=== PATIENT | female | born 1940 | race Caucasian/White ===

== ENCOUNTER 2022-02-11 15:12 | Inpatient (IN) ==
[2022-02-11 16:17] LABS: POC Calcium, Ionized 1.09 (1.16-1.32); POC Creatinine 0.7 (0.6-1.2); POC Potassium 3.8 (3.3-5.1)
[2022-02-11 16:42] LABS: Basophils # (Auto) 0 K/mcL (0.00-0.30); Basophils % (Auto) 0 % (0.0-2.0); Eosinophils # (Auto) 0.01 K/mcL (0.00-0.70); Eosinophils % (Auto) 0.3 % (0.0-7.0); Hematocrit 44.7 % (34.1-44.9); Hemoglobin 14.3 g/dL (11.2-15.7); Lymphocytes # (Auto) 0.57 K/mcL (1.50-4.80); Lymphocytes % (Auto) 17.4 % (15.5-49.0); Mean Cell Volume 98.2 fL (80.0-100.0); Mean Platelet Volume 10.5 fL (7.4-10.4); Monocytes # (Auto) 0.25 K/mcL (0.10-0.90); Monocytes % (Auto) 7.6 % (1.0-12.0); Neutrophils % (Auto) 74.7 % (38.0-78.0); Platelet Count 104 K/mcL (140-440); RBC 4.55 M/mcL (3.59-5.38); Red Cell Distribution Width 14.5 % (11.5-14.5); WBC 3.3 K/mcL (4.5-11.0)
[2022-02-11] MEDS ORDERED: DEXAMETHASONE 10 MG/ML VIAL IV ONE (17:54)
--- NOTE | 2022-02-11 17:54 | Emergency Department Note ---
HPI General Chief complaint: Cold/Flu Symptoms Stated complaint: wet cough Time Seen by Provider: 02/11/22 15:22 Source: patient Mode of arrival: wheelchair Limitations: no limitations History of Present Illness HPI Narrative: Narrative: Related Data Home Medications Medication Instructions Recorded Confirmed ascorbate calcium (vitamin C) 500 1,000 mg PO QDAY 12/29/18 02/07/22 mg tablet Previous Rx's Medication Instructions Recorded docusate sodium 100 mg capsule 100 mg PO BID #60 cap 06/15/19 (Colace) sumatriptan succinate 6 mg/0.5 mL See Rx Instructions .ROUTE 08/22/20 subcutaneous cartridge (refill) .COMPLEX #6 ml amitriptyline 10 mg tablet 20 mg PO QHS #60 tab 05/22/21 calcitonin (salmon) 200 See Rx Instructions .ROUTE 07/31/21 unit/actuation nasal spray .COMPLEX #11.1 milliliter losartan 25 mg tablet 25 mg PO QDAY #30 tab 08/14/21 raloxifene 60 mg tablet See Rx Instructions .ROUTE 09/25/21 .COMPLEX #90 tab levothyroxine 25 mcg tablet See Rx Instructions .ROUTE 10/09/21 .COMPLEX #30 tab tizanidine 2 mg tablet 2 mg PO BID PRN #60 tab 11/16/21 escitalopram oxalate 5 mg tablet 5 mg PO QDAY #30 tab 12/18/21 chlorhexidine gluconate 0.12 % See Rx Instructions .ROUTE 12/21/21 mouthwash .COMPLEX #473 ml methocarbamol 750 mg tablet 750 mg PO QHS #30 tab 01/02/22 pregabalin 75 mg capsule 75 mg PO QID #120 cap 01/25/22 oxycodone-acetaminophen 10 mg-325 1 tab PO Q6H PRN #120 tab 01/30/22 mg tablet alprazolam 0.5 mg tablet 0.5 mg PO QHS #30 tab 02/06/22 Allergies Allergy/AdvReac Type Severity Reaction Status Date / Time No Known Drug Allergies Allergy Verified 02/11/22 15:19 Review of Systems ROS ROS Narrative: Narrative: PFSH Narrative Patient History Narrative: Narrative: Medical/Surgical/Family History All Active Problems (Updated 02/11/22 @ 17:54 by Jason Dockery MD) COVID-19 (Acute) Degenerative disc disease (Acute) Neuropathy (Acute) Foot pain, right (Acute) Fall (on)(from) sidewalk curb, sequela (Acute) Osteoporosis (Acute) Irritable bowel syndrome (Chronic) Dysuria (Chronic) Rotoscoliosis (Chronic) Weakness (Chronic) History of surgery (Chronic) Adolescent idiopathic scoliosis, site unspecified (Chronic) Chronic pain (Chronic) Pain in left hip (Chronic) Low back pain (Chronic) Chronic, continuous use of opioids (Chronic) Encounter for medication management (Chronic) History of smoking 25-50 pack years (Chronic) Urinary urgency (Chronic) Urinary frequency (Chronic) Smoker (Chronic) Migraine (Chronic) Other nonspecific abnormal serum enzyme levels (Chronic) Fatigue (Chronic) SOB (shortness of breath) (Chronic) Hip pain (Chronic) COPD (chronic obstructive pulmonary disease) (Chronic) Back pain (Chronic) Fibromyalgia (Chronic) Lumbar radiculopathy (Chronic) Anxiety (Chronic) Muscle spasm (Chronic) Hypertension (Chronic) Shoulder pain (Chronic) Rupture of right biceps tendon (Chronic) Peripheral neuropathy (Chronic) GERD (gastroesophageal reflux disease) (Chronic) Insomnia (Chronic) Hyperlipidemia (Chronic) Anxiety with depression (Chronic) Adjustment disorder with mixed anxiety and depressed mood (Chronic) Impacted cerumen (Chronic) Scoliosis deformity of spine (Chronic) Esophageal stricture (Chronic) High risk medication use (Chronic) Overactive bladder (Chronic) Pain of right calf (Chronic) Hair loss (Chronic) Pain of left calf (Chronic) Foot pain (Chronic) Drug-induced constipation (Chronic) Pain in left shoulder (Chronic) Urinary incontinence (Chronic) Medical History (Updated 02/11/22 @ 17:54 by Jason Dockery MD) Adjustment disorder with mixed anxiety and depressed mood Adolescent idiopathic scoliosis, site unspecified Anxiety Anxiety with depression Back pain Cellulitis Chronic pain Chronic, continuous use of opioids for nonmalignant pain COPD (chronic obstructive pulmonary disease) Degenerative disc disease Drug-induced constipation Dysuria Esophageal stricture Fall (on)(from) sidewalk curb, sequela Fatigue Fibromyalgia Foot pain Foot pain, right GERD (gastroesophageal reflux disease) Hair loss High risk medication use Hip pain Hyperlipidemia Hypertension Impacted cerumen Insomnia Irritable bowel syndrome Low back pain Lumbar radiculopathy Migraine Muscle spasm Neuropathy Osteopenia Osteoporosis Other nonspecific abnormal serum enzyme levels Overactive bladder Pain in left hip Pain in left shoulder Pain of left calf Pain of right calf Peripheral neuropathy Rotoscoliosis Rupture of right biceps tendon Scoliosis deformity of spine Shoulder pain Smoker SOB (shortness of breath) Urinary frequency Urinary incontinence Urinary urgency Surgical History History of back surgery (~2011) Lumbar x 2; Back Stimulator (02/20/18) History of colonoscopy (~08/2008) History of esophagogastroduodenoscopy (EGD) (~04/2013) History of surgery RFTC Bilat L3-S1 w/sed 01/26/2001/05 MBB Bam. L3-S1 w/sed 01/05/202012/06 MBB #1 Bilat L3-S1 w/sed 12/16/1908/30 LESI #1 L5-S1 w/sed 09-18-11 S/P hip replacement (~2011) Family History Other Cancer Social History Smoking Status: Former smoker Alcohol Intake Frequency: does not drink Substance Use: does not use Exam Narrative Narrative: Narrative: General Limitations: no limitations General appearance: Present alert and in no apparent distress Head Head: Present atraumatic and normocephalic ENT ENT: Present normal oropharynx and other (tacky MM) Chest Chest: Present normal inspection and symmetric chest wall rise Respiratory Respiratory: Present normal lung sounds bilaterally; Absent respiratory distress Cardiovascular Cardiovascular: Present regular rate, normal rhythm, +S1, +S2 and other (2+ B/L DP and radial pulses); Absent systolic murmur or diastolic murmur Adbominal Abdominal: Present soft and normal bowel sounds; Absent distention or tenderness Extremities Extremities: Absent pedal edema Neurological Neurological: Present alert and oriented X3 Psychiatric Psychiatric: Present normal affect Skin Skin: Present warm (WNL) and dry Course Vital Signs Vital signs: Vital Signs Temperature 98.3 F 02/11/22 15:15 Pulse Rate 90 02/11/22 15:15 Respiratory Rate 16 02/11/22 15:15 Blood Pressure 133/58 02/11/22 15:15 Pulse Oximetry (%) 94 02/11/22 15:15 Temperature 98.3 F 02/11/22 15:15 Pulse Rate 77 02/11/22 19:01 Respiratory Rate 23 H 02/11/22 19:01 Blood Pressure 127/62 02/11/22 19:01 Pulse Oximetry (%) 97 02/11/22 19:01 MDM MDM Narrative Medical decision making narrative: 81yo F w/ h/o HTN, HLD, p/w cough. DDx - sepsis, PNA, COVID19, viral syndrome Pt presented clinically stable, in NAD. She was not septic, not toxic and blood cultures and lactate were not indicated. I did check a CXR which showed no infiltrate. Influenza swab was negative. COVID19 swab was positive. In the process of working her up she was noted to develop hypoxia w/ SaO2 coming down to the high 80s while resting. She was thus started on 2L NC which brought her sats up to the mid 90s. With COVID and hypoxia admission was clearly indicated and she was admitted to the hospitalist. Lab Data Result diagrams: 02/11/22 16:14 Labs: Lab Results 02/11/22 02/11/22 Range/Units 16:14 16:15 WBC 3.3 L (4.5-11.0) K/mcL RBC 4.55 (3.59-5.38) M/mcL Hgb 14.3 (11.2-15.7) g/dL Hct 44.7 (34.1-44.9) % POC Hct 42.0 (36-48) MCV 98.2 (80.0-100.0) fL MCH 31.4 (26.0-34.0) pg MCHC 32.0 (31.0-36.0) g/dL RDW 14.5 (11.5-14.5) % Plt Count 104 L (140-440) K/mcL MPV 10.5 H (7.4-10.4) fL Neut % (Auto) 74.7 (38.0-78.0) % Lymph % (Auto) 17.4 (15.5-49.0) % Anson % (Auto) 7.6 (1.0-12.0) % Eos % (Auto) 0.3 (0.0-7.0) % Baso % (Auto) 0 (0.0-2.0) % Lymph # (Auto) 0.57 L (1.50-4.80) K/mcL Anson # (Auto) 0.25 (0.10-0.90) K/mcL Eos # (Auto) 0.01 (0.00-0.70) K/mcL Baso # (Auto) 0 (0.00-0.30) K/mcL Absolute Neutrophils 2.44 (1.80-8.00) K/mcL POC Sodium 138 (133-145) POC Potassium 3.8 (3.3-5.1) POC Chloride 97 (96-108) POC Total CO2 30.0 (22-30) POC BUN 20 (6-20) POC Creatinine 0.7 (0.6-1.2) POC Glucose 114 H (70-105) POC WB Ioniz Calcium 1.09 L (1.16-1.32) ED POC Tests ED POC Tests: JUAN CARLOS - SARS Antigen Positive Discharge Plan Patient/Caregiver Discharge Instructions Pt seen by [facility] [employer]/PA only: No Clinical Impression: COVID-19 Patient Disposition: Xfer As Inpt ([facility]) Condition: Serious Follow up with: Jay Burt ARNP [Primary Care Provider] - Prescriptions: No Action docusate sodium [Colace] 100 mg capsule 100 mg PO BID Qty: 60 5RF sumatriptan succinate 6 mg/0.5 mL cartridge See Rx Instructions .ROUTE .COMPLEX Qty: 6 0RF Dose Instruction: inject 0.5 milliliter (6 MILLIGRAMS) subcutaneously EVERY 1-4 HOURS if needed for migraines Rx Instructions: inject 0.5 milliliter (6 MILLIGRAMS) subcutaneously EVERY 1-4 HOURS if needed for migraines amitriptyline 10 mg tablet 20 mg PO QHS Qty: 60 2RF calcitonin (salmon) 200 unit/actuation spray,non-aerosol See Rx Instructions .ROUTE .COMPLEX Qty: 11.1 2RF Dose Instruction: instill 1 spray into alternating nostrils once daily Rx Instructions: instill 1 spray into alternating nostrils once daily losartan 25 mg tablet 25 mg PO QDAY Qty: 30 2RF Hold Instructions: Doctor's Order raloxifene 60 mg tablet See Rx Instructions .ROUTE .COMPLEX Qty: 90 1RF Dose Instruction: take 1 tablet by mouth once daily Rx Instructions: take 1 tablet by mouth once daily levothyroxine 25 mcg tablet See Rx Instructions .ROUTE .COMPLEX Qty: 30 3RF Dose Instruction: take 1 tablet by mouth once daily Rx Instructions: take 1 tablet by mouth once daily tizanidine 2 mg tablet 2 mg PO BID PRN (Reason: muscle spasticity) Qty: 60 1RF escitalopram oxalate 5 mg tablet 5 mg PO QDAY Qty: 30 3RF chlorhexidine gluconate 0.12 % mouthwash See Rx Instructions .ROUTE .COMPLEX Qty: 473 2RF Dose Instruction: swish 15 milliliters by mouth for 30 SECONDS then SPIT use twice a day after meals Rx Instructions: swish 15 milliliters by mouth for 30 SECONDS then SPIT use twice a day after meals methocarbamol 750 mg tablet 750 mg PO QHS Qty: 30 2RF pregabalin 75 mg capsule 75 mg PO QID Qty: 120 0RF oxycodone-acetaminophen 10-325 mg tablet 1 tab PO Q6H PRN (Reason: pain) Qty: 120 0RF alprazolam 0.5 mg tablet 0.5 mg PO QHS Qty: 30 1RF ascorbate calcium (vitamin C) 500 mg tablet 1,000 mg PO QDAY 0RF mirabegron [Myrbetriq] 25 mg tablet extended release 24 hr 0RF
--- NOTE | 2022-02-11 18:42 | XRay Report ---
CLINICAL INFORMATION: Chest pain COMPARISON: 10/06/2019 TECHNIQUE: PA and Lateral views FINDINGS: The heart size, mediastinum and pulmonary vessels are unremarkable. Minor bibasilar atelectasis noted.. There are no effusions. The bones and soft tissues are within normal limits. IMPRESSION: Normal chest. Interpreted and Authenticated by: Gerson Casarez 02/11/22
[2022-02-11] MEDS ORDERED: ONDANSETRON 4 MG/2 ML VIAL IV PRN (19:26)
[2022-02-11] MEDS ORDERED: traMADol 50 MG TABLET PO PRN (19:26)
[2022-02-11] MEDS ORDERED: hydrALAZINE 20 MG/ML VIAL IV PRN (19:26)
[2022-02-11] MEDS ORDERED: QUEtiapine 25 MG TABLET PO PRN (19:26)
[2022-02-11] MEDS ORDERED: MELATONIN 3 MG TABLET PO PRN (19:26)
[2022-02-11] MEDS ORDERED: DILTIAZEM 25 MG/5 ML VIAL IV PRN (19:26)
[2022-02-11] MEDS ORDERED: ALBUTEROL SULFATE 2.5 MG/3 ML NEBULIZER NEB PRN (19:27)
[2022-02-11] MEDS ORDERED: MAGNESIUM HYDROXIDE 30 ML ORAL.SUSP PO PRN (19:27)
[2022-02-11] MEDS ORDERED: PROCHLORPERAZINE 10 MG/2 ML VIAL IV PRN (19:27)
[2022-02-11] MEDS ORDERED: ACETAMINOPHEN 325 MG TABLET PO PRN (19:27)
[2022-02-11] MEDS ORDERED: REMDESIVIR 200 MG in 0.9 % SODIUM CHLORIDE 250 ML IV ONE (19:27)
[2022-02-11 20:54] LABS: ALT/SGPT 19 U/L (<40); AST/SGOT 74 U/L (<32); Albumin 3.7 gm/dL (3.2-5.2); Albumin/Globulin Ratio 1.9 (1.0-2.3); Alkaline Phosphatase 62 U/L (39-117); Bilirubin,Direct < 0.2 mg/dL (0-0.3); Bilirubin,Total 0.2 mg/dL (0.1-1.0); Blood Urea Nitrogen 14 mg/dL (8-23); Calcium 8.6 mg/dL (8.6-10.4); Carbon Dioxide 30 mmol/L (22-30); Chloride 102 mmol/L (96-108); Glomerular Filtration Rate 86; Glucose 107 mg/dL (70-105); Lactate Dehydrogenase 240 U/L (135-225); Triglycerides 120 mg/dL (<150); Uric Acid 3.7 mg/dL (2.5-8.0)
[2022-02-11] MEDS ORDERED: HYDROcodone/APAP 5/325MG TABLET PO PRN (21:49)
[2022-02-11] MEDS: DOCUSATE SODIUM 100 MG CAPSULE PO SCH (22:09)
[2022-02-11] MEDS: SENNOSIDES 1 TABLET PO SCH (22:09)
[2022-02-11] MEDS ORDERED: HYDROcodone/APAP 5/325MG TABLET PO ONE (22:12)
[2022-02-11] MEDS: 0.9 % SODIUM CHLORIDE 1,000 ML IV SCH (22:17)
[2022-02-11] MEDS: 0.9 % SODIUM CHLORIDE 10 ML SYRINGE IV SCH (22:27)
--- NOTE | 2022-02-11 23:03 | Internal Med History&Physical ---
HPI History of Present Illness Patient information: Note initiated : 02/11/22 at 11:03 pm Service Date, if different from initiated Date: [] Patient: Clara Hall 81 y/o F admitted on 02/11/22 for wet cough. Chief Complaint: [] History of present illness: Ms. Hall is a 81 year old F 81-year-old female with a chronic smoking, chronic pain, essential hypertension, hypothyroidism was brought to the ER because of shortness of breath and tiredne ss. Patient was very to the ER and was 80% on room air further evaluation showed she was positive for COVID chest x-ray did not show any pneumonia she had mild wheezing bilaterally she was admitted for further management of hypoxia and COVID-19 infection with a probable COPD Review of systems Constitutional chills a week ago Eyes: no vision changes or pain Cardiovascular: no chest pain, no palpitations Respiratory: Cough and shortness of breath Gastrointestinal: no nausea and stil have abdominal discomfort. Genitourinary: no dysuria or difficulty voiding Musculoskeletal: no arthralgia or myalgia Integumentary: no skin lesion or wound Neurological: no focal weakness or numbness Psychiatric: no anxiety or depression Physical exam Head: No bruises, normal-appearing nontraumatic Eyes: normal appearance, no scleral icterus. Neck: full ROM Respiratory: No respiratory distress needing 2 L of nasal cannula oxygen, occasional wheezing Cardiovascular: normal rate and rhythm, S1, S2. GI/Abdominal: soft, nontender, no guarding. Extremities: full range of motion, nontender. Neurological: CN II-XII intact, intact motor, intact sensation. Psychiatric: normal mood. Skin: warm, normal color PFSH PFSH All Active Problems (Updated 02/11/22 @ 17:54 by Jason Dockery MD) COVID-19 (Acute) Degenerative disc disease (Acute) Neuropathy (Acute) Foot pain, right (Acute) Fall (on)(from) sidewalk curb, sequela (Acute) Osteoporosis (Acute) Irritable bowel syndrome (Chronic) Dysuria (Chronic) Rotoscoliosis (Chronic) Weakness (Chronic) History of surgery (Chronic) Adolescent idiopathic scoliosis, site unspecified (Chronic) Chronic pain (Chronic) Pain in left hip (Chronic) Low back pain (Chronic) Chronic, continuous use of opioids (Chronic) Encounter for medication management (Chronic) History of smoking 25-50 pack years (Chronic) Urinary urgency (Chronic) Urinary frequency (Chronic) Smoker (Chronic) Migraine (Chronic) Other nonspecific abnormal serum enzyme levels (Chronic) Fatigue (Chronic) SOB (shortness of breath) (Chronic) Hip pain (Chronic) COPD (chronic obstructive pulmonary disease) (Chronic) Back pain (Chronic) Fibromyalgia (Chronic) Lumbar radiculopathy (Chronic) Anxiety (Chronic) Muscle spasm (Chronic) Hypertension (Chronic) Shoulder pain (Chronic) Rupture of right biceps tendon (Chronic) Peripheral neuropathy (Chronic) GERD (gastroesophageal reflux disease) (Chronic) Insomnia (Chronic) Hyperlipidemia (Chronic) Anxiety with depression (Chronic) Adjustment disorder with mixed anxiety and depressed mood (Chronic) Impacted cerumen (Chronic) Scoliosis deformity of spine (Chronic) Esophageal stricture (Chronic) High risk medication use (Chronic) Overactive bladder (Chronic) Pain of right calf (Chronic) Hair loss (Chronic) Pain of left calf (Chronic) Foot pain (Chronic) Drug-induced constipation (Chronic) Pain in left shoulder (Chronic) Urinary incontinence (Chronic) Medical History (Updated 02/11/22 @ 17:54 by Jason Dockery MD) Adjustment disorder with mixed anxiety and depressed mood Adolescent idiopathic scoliosis, site unspecified Anxiety Anxiety with depression Back pain Cellulitis Chronic pain Chronic, continuous use of opioids for nonmalignant pain COPD (chronic obstructive pulmonary disease) Degenerative disc disease Drug-induced constipation Dysuria Esophageal stricture Fall (on)(from) sidewalk curb, sequela Fatigue Fibromyalgia Foot pain Foot pain, right GERD (gastroesophageal reflux disease) Hair loss High risk medication use Hip pain Hyperlipidemia Hypertension Impacted cerumen Insomnia Irritable bowel syndrome Low back pain Lumbar radiculopathy Migraine Muscle spasm Neuropathy Osteopenia Osteoporosis Other nonspecific abnormal serum enzyme levels Overactive bladder Pain in left hip Pain in left shoulder Pain of left calf Pain of right calf Peripheral neuropathy Rotoscoliosis Rupture of right biceps tendon Scoliosis deformity of spine Shoulder pain Smoker SOB (shortness of breath) Urinary frequency Urinary incontinence Urinary urgency Surgical History History of back surgery (~2011) Lumbar x 2; Back Stimulator (02/20/18) History of colonoscopy (~08/2008) History of esophagogastroduodenoscopy (EGD) (~04/2013) History of surgery RFTC Bilat L3-S1 w/sed 01/26/2001/05 MBB Bam. L3-S1 w/sed 01/05/202012/06 MBB #1 Bilat L3-S1 w/sed 12/16/1908/30 LESI #1 L5-S1 w/sed 09-18-11 S/P hip replacement (~2011) Family History Other Cancer Social History marital status: physical activity: none smoking status: Former smoker quit date: 08/19/04 pack-years: 40 alcohol intake frequency: does not drink substance use type: does not use seatbelt use: always MEDS/ALLERGIES Home Medications and Allergies Home Medications Medication Instructions Recorded Confirmed Type ascorbate calcium (vitamin C) 500 1,000 mg PO QDAY 12/29/18 02/11/22 History mg tablet docusate sodium 100 mg capsule 100 mg PO BID #60 cap 06/15/19 02/07/22 Rx (Colace) sumatriptan succinate 6 mg/0.5 mL See Rx Instructions .ROUTE 08/22/20 02/07/22 Rx subcutaneous cartridge (refill) .COMPLEX #6 ml amitriptyline 10 mg tablet 20 mg PO QHS #60 tab 05/22/21 02/11/22 Rx calcitonin (salmon) 200 See Rx Instructions .ROUTE 07/31/21 02/07/22 Rx unit/actuation nasal spray .COMPLEX #11.1 milliliter losartan 25 mg tablet 25 mg PO QDAY #30 tab 08/14/21 02/07/22 Rx raloxifene 60 mg tablet See Rx Instructions .ROUTE 09/25/21 02/11/22 Rx .COMPLEX #90 tab levothyroxine 25 mcg tablet See Rx Instructions .ROUTE 10/09/21 02/11/22 Rx .COMPLEX #30 tab tizanidine 2 mg tablet 2 mg PO BID PRN #60 tab 11/16/21 02/11/22 Rx escitalopram oxalate 5 mg tablet 5 mg PO QDAY #30 tab 12/18/21 02/11/22 Rx chlorhexidine gluconate 0.12 % See Rx Instructions .ROUTE 05/05/22 06/22/22 Rx mouthwash .COMPLEX #473 ml methocarbamol 750 mg tablet 750 mg PO QHS #30 tab 01/02/22 02/11/22 Rx pregabalin 75 mg capsule 75 mg PO QID #120 cap 01/25/22 02/11/22 Rx alprazolam 0.5 mg tablet 0.5 mg PO QHS #30 tab 02/06/22 02/11/22 Rx oxycodone-acetaminophen 10 mg-325 1 tab PO Q4 02/11/22 02/11/22 History mg tablet Allergies Allergy/AdvReac Type Severity Reaction Status Date / Time No Known Drug Allergies Allergy Verified 02/11/22 15:19 EXAM Constitutional Vitals: Temp Pulse Resp BP Pulse Ox 99.4 F H 88 16 137/62 91 02/11/22 20:52 02/11/22 20:52 02/11/22 20:52 02/11/22 20:52 02/11/22 21:29 DATA Data Completed and Pending Labs: Labs from last 24 hours 02/11/22 02/11/22 02/11/22 20:21 20:02 16:15 WBC RBC Hgb Hct POC Hct 42.0 MCV MCH MCHC RDW Plt Count MPV Neut % (Auto) Lymph % (Auto) Bowie % (Auto) Eos % (Auto) Baso % (Auto) Lymph # (Auto) Bowie # (Auto) Eos # (Auto) Baso # (Auto) Absolute Neutrophils POC Sodium 138 Sodium 141 POC Potassium 3.8 Potassium 4.1 POC Chloride 97 Chloride 102 Carbon Dioxide 30 POC Total CO2 30.0 Anion Gap 9.0 POC BUN 20 BUN 14 Creatinine 0.6 POC Creatinine 0.7 GFR Calculation 86 Glucose 107 H POC Glucose 114 H Uric Acid 3.7 Calcium 8.6 POC WB Ioniz Calcium 1.09 L Phosphorus 3.0 Magnesium 2.1 Total Bilirubin 0.2 Direct Bilirubin < 0.2 GGT 12 AST 74 H ALT 19 Alkaline Phosphatase 62 Lactate Dehydrogenase 240 H Troponin T < 0.01 Total Protein 5.7 L Albumin 3.7 Globulin 2.0 L Albumin/Globulin Ratio 1.9 Triglycerides 120 02/11/22 16:14 WBC 3.3 L RBC 4.55 Hgb 14.3 Hct 44.7 POC Hct MCV 98.2 MCH 31.4 MCHC 32.0 RDW 14.5 Plt Count 104 L MPV 10.5 H Neut % (Auto) 74.7 Lymph % (Auto) 17.4 Bowie % (Auto) 7.6 Eos % (Auto) 0.3 Baso % (Auto) 0 Lymph # (Auto) 0.57 L Bowie # (Auto) 0.25 Eos # (Auto) 0.01 Baso # (Auto) 0 Absolute Neutrophils 2.44 POC Sodium Sodium POC Potassium Potassium POC Chloride Chloride Carbon Dioxide POC Total CO2 Anion Gap POC BUN BUN Creatinine POC Creatinine GFR Calculation Glucose POC Glucose Uric Acid Calcium POC WB Ioniz Calcium Phosphorus Magnesium Total Bilirubin Direct Bilirubin GGT AST ALT Alkaline Phosphatase Lactate Dehydrogenase Troponin T Total Protein Albumin Globulin Albumin/Globulin Ratio Triglycerides A/P Narrative Plan of Treatment: Acute hypoxemic respiratory failure COVID-19 infection Probable COPD exacerbation Patient reported history of chronic smoking Diagnosed with COVID in the ED Patient is unvaccinated Needing 2 to 3 L of nasal cannula oxygen plan Plan Discussed with the patient and started her on dexamethasone and remdesivir We will monitor her oxygenation DuoNebs every 6 hours as needed Consider antibiotic if she is not improving next Chronic pain Resume her home medications Hypothyroidism Resume levothyroxine Essential hypertension Resume her home medications Chronic pain DVT prophylaxis Heparin subcu Lovenox CODE STATUS-full code Time Spent With Patient Time: Total time spent is greater than 50% in coordination of care (as documented) at patient's floor/unit and/or counseling patient: QUALITY VTE Deep Vein Thrombosis/Pulmonary Embolism Present on Admission: No
[2022-02-11] MEDS: ALPRAZolam 0.5 MG TABLET PO SCH (23:38)
[2022-02-11] MEDS ORDERED: METHOCARBAMOL 750 MG TABLET PO ONE (23:45)
[2022-02-11] MEDS ORDERED: PREGABALIN 25 MG CAPSULE PO ONE (23:45)
[2022-02-11] MEDS ORDERED: ALPRAZolam 0.5 MG TABLET ONE (23:45)
[2022-02-11] MEDS: PREGABALIN 75 MG CAPSULE PO SCH (23:49)
[2022-02-11] MEDS: AMITRIPTYLINE 10 MG TABLET PO SCH (23:50)
[2022-02-12] MEDS: IPRATROPIUM/ALBUTEROL 3 ML AMPUL.NEB NEB SCH ×2 (01:15→07:55)
[2022-02-12] MEDS ORDERED: HYDROcodone/APAP 5/325MG TABLET PO ONE ×2 (02:45→05:47)
[2022-02-12] MEDS: 0.9 % SODIUM CHLORIDE 10 ML SYRINGE IV SCH ×3 (05:01→22:06)
[2022-02-12 06:52] LABS: Basophils # (Auto) 0.01 K/mcL (0.00-0.30); Basophils % (Auto) 0.2 % (0.0-2.0); Eosinophils # (Auto) 0 K/mcL (0.00-0.70); Eosinophils % (Auto) 0 % (0.0-7.0); Hematocrit 42.9 % (34.1-44.9); Hemoglobin 13.8 g/dL (11.2-15.7); Lymphocytes # (Auto) 0.69 K/mcL (1.50-4.80); Lymphocytes % (Auto) 17.1 % (15.5-49.0); Mean Cell Volume 98.2 fL (80.0-100.0); Mean Corpuscular HGB Conc 32.2 g/dL (31.0-36.0); Mean Platelet Volume 10.6 fL (7.4-10.4); Monocytes # (Auto) 0.18 K/mcL (0.10-0.90); Monocytes % (Auto) 4.5 % (1.0-12.0); Neutrophils % (Auto) 78.2 % (38.0-78.0); Platelet Count 103 K/mcL (140-440); RBC 4.37 M/mcL (3.59-5.38); Red Cell Distribution Width 14.3 % (11.5-14.5)
[2022-02-12] MEDS: PANTOPRAZOLE 40 MG TABLET PO SCH (06:55)
[2022-02-12] MEDS: LEVOTHYROXINE 25 MCG TABLET PO SCH (06:55)
[2022-02-12 07:11] LABS: ALT/SGPT 15 U/L (<40); AST/SGOT 61 U/L (<32); Albumin 3.2 gm/dL (3.2-5.2); Albumin/Globulin Ratio 1.6 (1.0-2.3); Alkaline Phosphatase 57 U/L (39-117); Bilirubin,Total 0.2 mg/dL (0.1-1.0); Blood Urea Nitrogen 15 mg/dL (8-23); Calcium 8.2 mg/dL (8.6-10.4); Carbon Dioxide 26 mmol/L (22-30); Chloride 105 mmol/L (96-108); Glomerular Filtration Rate 86; Glucose 93 mg/dL (70-105)
[2022-02-12] MEDS: ASCORBIC ACID 500 MG TABLET PO SCH (09:11)
[2022-02-12] MEDS: ESCITALOPRAM 10 MG TABLET PO SCH (09:12)
[2022-02-12] MEDS: PREGABALIN 75 MG CAPSULE PO SCH ×2 (09:12→22:05)
[2022-02-12] MEDS: LOSARTAN 25 MG TABLET PO SCH (09:13)
[2022-02-12] MEDS: DEXAMETHASONE 10 MG/ML VIAL IV SCH (09:14)
[2022-02-12] MEDS: 0.9 % SODIUM CHLORIDE 1,000 ML IV SCH ×2 (09:26→11:26)
[2022-02-12] MEDS: DOCUSATE SODIUM 100 MG CAPSULE PO SCH ×2 (09:26→22:05)
[2022-02-12] MEDS: ENOXAPARIN 40 MG/0.4 ML SYRINGE SQ SCH (09:32)
--- NOTE | 2022-02-12 10:27 | Internal Med Progress Note ---
SUBJECTIVE Subjective Patient information: Note initiated : 02/12/22 at 10:26 am Service Date, if different from initiated Date: [] Patient: Clara Hall 81 y/o F admitted on 02/11/22 for wet cough. Chief Complaint: [] Interval history: 81-year-old female with a chronic smoking, chronic pain, essential hypertension, hypothyroidism was brought to the ER because of shortness of breath and tiredness. Patient was very to the ER and was 80% on room air further evaluation showed she was positive for COVID chest x-ray did not show any pneumonia she had mild wheezing bilaterally she was admitted for further management of hypoxia and COVID-19 infection with a probable COPD 02/12 Patient continues to improve Continue dexamethasone She is off of oxygen She continues to improve planning to discharge her tomorrow Review of systems Constitutional chills a week ago Eyes: no vision changes or pain Cardiovascular: no chest pain, no palpitations Respiratory: Cough and shortness of breath-improving Gastrointestinal: no nausea and stil have abdominal discomfort. Genitourinary: no dysuria or difficulty voiding Musculoskeletal: no arthralgia or myalgia Integumentary: no skin lesion or wound Neurological: no focal weakness or numbness Psychiatric: no anxiety or depression Physical exam Head: No bruises, normal-appearing nontraumatic Eyes: normal appearance, no scleral icterus. Neck: full ROM Respiratory: No respiratory distress occasional wheezing Cardiovascular: normal rate and rhythm, S1, S2. GI/Abdominal: soft, nontender, no guarding. Extremities: full range of motion, nontender. Neurological: CN II-XII intact, intact motor, intact sensation. Psychiatric: normal mood. Skin: warm, normal color Constitutional Vitals: Vital Signs Temp Pulse Resp BP Pulse Ox 98.4 F 74 16 138/68 94 02/12/22 07:56 02/12/22 07:56 02/12/22 07:56 02/12/22 07:56 02/12/22 08:00 Period Temp Pulse Resp BP Sys/Mccabe Pulse Ox Last 24 Hr 98.2 F-99.4 F 74-90 12-23 87-149/52-120 88-100 Intake and Output 02/11/22 02/12/22 02/12/22 21:59 05:59 13:59 Intake Total 490 Output Total 650 Balance -160 Weight 48.58 kg Intake & Output: Intake & Output 02/11/22 02/12/22 02/12/22 21:59 05:59 13:59 Intake Total 490 Output Total 650 Balance -160 Weight 48.58 kg Intake: IV 250 Veklury 200 mg In Sodium 250 Chloride 0.9% 250 ml @ 500 mls/ hr IV ONCE ONE Rx#:[id number] Oral 240 Output: Void Amount 650 Other: Meal Breakfast Percent of Meal Consumed 25% Stool Size Small Stool Color Brown Stool Consistency Loose # Voids 1 # Bowel Movements 1 OBJ DATA Labs CBC & Chem 7: 02/12/22 05:34 02/12/22 05:34 Labs: Abnormal Lab Results 02/12/22 02/12/22 02/11/22 05:34 05:34 20:21 WBC 4.0 L Plt Count 103 L MPV 10.6 H Neut % (Auto) 78.2 H Lymph # (Auto) 0.69 L Glucose 107 H POC Glucose Calcium 8.2 L POC WB Ioniz Calcium AST 61 H 74 H Lactate Dehydrogenase 240 H Total Protein 5.2 L 5.7 L Globulin 2.0 L 2.0 L 02/11/22 02/11/22 16:15 16:14 WBC 3.3 L Plt Count 104 L MPV 10.5 H Neut % (Auto) Lymph # (Auto) 0.57 L Glucose POC Glucose 114 H Calcium POC WB Ioniz Calcium 1.09 L AST Lactate Dehydrogenase Total Protein Globulin Meds: Medications Acetaminophen (Acetaminophen 325 Mg Tablet) 650 mg PO Q6HP PRN; Protocol PRN Reason: Per Pain Protocol/Fever > 101 Last Admin: 02/12/22 02:41 Dose: 650 mg Documented by: Albuterol Sulfate (Albuterol Sulfate 2.5 Mg/3 Ml Nebulizer) 2.5 mg NEB Q2HP PRN PRN Reason: Shortness Of Breath Alprazolam (Alprazolam 0.5 Mg Tablet) 0.5 mg PO QHS [facility] Last Admin: 02/11/22 23:38 Dose: 0.5 mg Documented by: Amitriptyline HCl (Amitriptyline 10 Mg Tablet) 20 mg PO QHS [facility] Last Admin: 02/11/22 23:50 Dose: Not Given Documented by: Ascorbic Acid (Ascorbic Acid 500 Mg Tablet) 1,000 mg PO QDAY [facility] Last Admin: 02/12/22 09:11 Dose: 1,000 mg Documented by: Dexamethasone (Dexamethasone 10 Mg/Ml Vial) 6 mg IV DAILY [facility] Last Admin: 02/12/22 09:14 Dose: 6 mg Documented by: Diltiazem HCl (Diltiazem 25 Mg/5 Ml Vial) 10 mg IV Q4HP PRN PRN Reason: Tachyarrhythmias Docusate Sodium (Docusate Sodium 100 Mg Capsule) 100 mg PO BID [facility] Last Admin: 02/12/22 09:26 Dose: Not Given Documented by: Enoxaparin Sodium (Enoxaparin 40 Mg/0.4 Ml Syringe) 40 mg SQ DAILY [facility] Last Admin: 02/12/22 09:32 Dose: 40 mg Documented by: Escitalopram Oxalate (Escitalopram 10 Mg Tablet) 5 mg PO QDAY [facility] Last Admin: 02/12/22 09:12 Dose: 5 mg Documented by: Hydralazine HCl (Hydralazine 20 Mg/Ml Vial) 10 mg IV Q4-6HP PRN PRN Reason: Hypertension Sodium Chloride (Sodium Chloride 0.9%) 1,000 mls @ 75 mls/hr IV .[id number] [facility] Stop: 02/12/22 19:29 Last Admin: 02/12/22 09:26 Dose: Not Given Documented by: REMDESIVIR 100 mg/ Sodium (Chloride) 250 mls @ 500 mls/hr IV Q24H [facility] Stop: 02/15/22 13:59 Levothyroxine Sodium (Levothyroxine 25 Mcg Tablet) 25 mcg PO QAMAC [facility] Last Admin: 02/12/22 06:55 Dose: 25 mcg Documented by: Losartan Potassium (Losartan 25 Mg Tablet) 25 mg PO QDAY [facility] Last Admin: 02/12/22 09:13 Dose: 25 mg Documented by: Magnesium Hydroxide (Magnesium Hydroxide 30 Ml Oral.Susp) 30 ml PO DAILYP PRN PRN Reason: Constipation Melatonin (Melatonin 3 Mg Tablet) 3 mg PO HSP PRN PRN Reason: Insomnia Methocarbamol (Methocarbamol 750 Mg Tablet) 750 mg PO QHS [facility] Ondansetron HCl (Ondansetron 4 Mg/2 Ml Vial) 4 mg IV Q6HP PRN PRN Reason: Nausea And Vomiting Oxycodone/Acetaminophen (Oxycodone/Apap 10/325mg Tablet) 1 tab PO Q6HP PRN; Protocol PRN Reason: Pain Pantoprazole Sodium (Pantoprazole 40 Mg Tablet) 40 mg PO QAMAC [facility] Last Admin: 02/12/22 06:55 Dose: 40 mg Documented by: Pregabalin (Pregabalin 75 Mg Capsule) 75 mg PO BID [facility] Last Admin: 02/12/22 09:12 Dose: 75 mg Documented by: Prochlorperazine (Prochlorperazine 10 Mg/2 Ml Vial) 5 mg IV Q4HP PRN PRN Reason: Nausea And Vomiting Quetiapine Fumarate (Quetiapine 25 Mg Tablet) 12.5 mg PO HSP PRN PRN Reason: iNSOMNIA-2nd option Senna (Sennosides 1 Tablet) 2 tab PO HS [facility] Last Admin: 02/11/22 22:09 Dose: 2 tab Documented by: Sodium Chloride (0.9 % Sodium Chloride 10 Ml Syringe) 10 ml IV Q8 [facility] Last Admin: 02/12/22 05:01 Dose: Not Given Documented by: A/P Narrative Plan of Treatment: Acute hypoxemic respiratory failure COVID-19 infection Probable COPD exacerbation Patient reported history of chronic smoking Diagnosed with COVID in the ED Patient is unvaccinated Needing 2 to 3 L of nasal cannula oxygen plan Plan Continued on on dexamethasone and remdesivir We will monitor her oxygenation DuoNebs every 6 hours as needed Consider antibiotic if she is not improving Chronic pain Resume her home medications Hypothyroidism Resume levothyroxine Essential hypertension Resume her home medications Chronic pain DVT prophylaxis Heparin subcu Lovenox CODE STATUS-full code Time Spent With Patient Time: Total time spent is greater than 50% in coordination of care (as documented) at patient's floor/unit and/or counseling patient: QUALITY VTE Deep Vein Thrombosis/Pulmonary Embolism Present on Admission: No
[2022-02-12] MEDS: oxyCODONE/APAP 10/325MG TABLET PO PRN ×2 (11:32→17:58)
[2022-02-12] MEDS ORDERED: REMDESIVIR 100 MG in 0.9 % SODIUM CHLORIDE 250 ML IV SCH (14:00)
[2022-02-12] MEDS ORDERED: tiZANidine 4 MG TABLET PO PRN (17:30)
[2022-02-12] MEDS: CHLORHEXIDINE GLUCONATE 1 ML ORAL.SOL SSP SCH (17:58)
[2022-02-12] MEDS ORDERED: METHOCARBAMOL 750 MG TABLET PO SCH (21:00)
[2022-02-12] MEDS: SENNOSIDES 1 TABLET PO SCH (22:05)
[2022-02-12] MEDS: AMITRIPTYLINE 10 MG TABLET PO SCH (22:05)
[2022-02-12] MEDS: ALPRAZolam 0.5 MG TABLET PO SCH (22:05)
[2022-02-13] MEDS: 0.9 % SODIUM CHLORIDE 10 ML SYRINGE IV SCH (05:18)
[2022-02-13 07:02] LABS: ALT/SGPT 14 U/L (<40); AST/SGOT 55 U/L (<32); Albumin 2.8 gm/dL (3.2-5.2); Albumin/Globulin Ratio 1.6 (1.0-2.3); Alkaline Phosphatase 44 U/L (39-117); Bilirubin,Total < 0.2 mg/dL (0.1-1.0); Blood Urea Nitrogen 13 mg/dL (8-23); Calcium 7.9 mg/dL (8.6-10.4); Carbon Dioxide 26 mmol/L (22-30); Chloride 109 mmol/L (96-108); Globulin 1.7 gm/dL (2.2-3.7); Glomerular Filtration Rate 86; Glucose 79 mg/dL (70-105)
[2022-02-13] MEDS: PANTOPRAZOLE 40 MG TABLET PO SCH (07:12)
[2022-02-13] MEDS: LEVOTHYROXINE 25 MCG TABLET PO SCH (07:12)
[2022-02-13 08:07] LABS: Basophils # (Auto) 0 K/mcL (0.00-0.30); Basophils % (Auto) 0 % (0.0-2.0); Eosinophils # (Auto) 0 K/mcL (0.00-0.70); Eosinophils % (Auto) 0 % (0.0-7.0); Hemoglobin 12.5 g/dL (11.2-15.7); Lymphocytes # (Auto) 0.81 K/mcL (1.50-4.80); Mean Cell Volume 98.2 fL (80.0-100.0); Mean Corpuscular HGB Conc 32.1 g/dL (31.0-36.0); Mean Platelet Volume 10.9 fL (7.4-10.4); Monocytes # (Auto) 0.24 K/mcL (0.10-0.90); Monocytes % (Auto) 6.2 % (1.0-12.0); Neutrophils % (Auto) 72.5 % (38.0-78.0); Platelet Count 82 K/mcL (140-440); RBC 3.97 M/mcL (3.59-5.38); Red Cell Distribution Width 14.4 % (11.5-14.5); WBC 3.9 K/mcL (4.5-11.0)
[2022-02-13] MEDS: oxyCODONE/APAP 10/325MG TABLET PO PRN (08:28)
[2022-02-13] MEDS: CHLORHEXIDINE GLUCONATE 1 ML ORAL.SOL SSP SCH (08:28)
[2022-02-13] MEDS: DOCUSATE SODIUM 100 MG CAPSULE PO SCH (08:29)
[2022-02-13] MEDS: ESCITALOPRAM 10 MG TABLET PO SCH (08:30)
[2022-02-13] MEDS: PREGABALIN 75 MG CAPSULE PO SCH (08:30)
[2022-02-13] MEDS: ASCORBIC ACID 500 MG TABLET PO SCH (08:31)
[2022-02-13] MEDS: LOSARTAN 25 MG TABLET PO SCH (08:31)
[2022-02-13] MEDS: DEXAMETHASONE 10 MG/ML VIAL IV SCH (08:32)
[2022-02-13] MEDS: ENOXAPARIN 40 MG/0.4 ML SYRINGE SQ SCH (08:32)
[2022-02-13] MEDS ORDERED: RALOXIFENE HCL 60 MG TABLET PO SCH (09:00)
--- NOTE | 2022-02-13 09:58 | Discharge Summary ---
Discharge Provider Provider IMPORTANT FOLLOW-UP INFORMATION FOR PCP: Patient information: Note initiated : 02/13/22 at 9:55 am Service Date, if different from initiated Date: [] Patient: Clara Hall 81 y/o F admitted on 02/11/22 for wet cough. Chief Complaint: [] Date of admission: 02/11/22 20:43 Discharge date: 02/13/22 Primary care physician: DISHA Sanchez Attending physician on admission: Freddy Luis Consults: 02/11/22 Consult to Physician [CONS] Stat Comment: Consulting Provider: Kurtis Sales Reason For Exam: Physician to Consult Attending physician on discharge: Freddy Luis COURSE Hospital Course Hospital course: Interval history: 81-year-old female with a chronic smoking, chronic pain, essential hypertension, hypothyroidism was brought to the ER because of shortness of breath and tiredness. Patient was very to the ER and was 80% on room air further evaluation showed she was positive for COVID chest x-ray did not show any pneumonia she had mild wheezing bilaterally she was admitted for further management of hypoxia and COVID-19 infection with a probable COPD 02/12 Patient continues to improve Continue dexamethasone She is off of oxygen She continues to improve planning to discharge her tomorrow 02/13: Patient reached clinical stability and is currently tolerating room air. Decision made to discharge the patient's home with follow-up appointment made for the patient. Discharge diagnosis: CoVID pneumonia Time Spent with Patient Time attestation: Total time spent providing and/or coordinating discharge services: Time spent: Less than 30 minutes EXAM Constitutional Vitals: Temp Pulse Resp BP Pulse Ox 36.6 C 76 16 149/70 90 02/13/22 07:16 02/13/22 07:16 02/13/22 07:16 02/13/22 07:16 02/13/22 07:16 General appearance: cooperative and no acute distress Head Head exam: Present atraumatic and normocephalic Eye Eye exam: Present EOMI and PERRL ENT ENT exam: Present mucous membranes moist, normal exam and normal external ear exam Neck Neck exam: Present normal inspection; Absent lymphadenopathy, tenderness or thyromegaly Respiratory Respiratory exam: Absent accessory muscle use, respiratory distress or wheezes Cardiovascular Cardiovascular exam: Present normal rate and rhythm; Absent JVD GI/Abdominal GI/Abdominal exam: Present normal bowel sounds and soft; Absent organomegaly or tenderness Extremities Exam Extremities exam: Present full ROM, normal capillary refill and normal inspecti on; Absent tenderness Neurological Exam Neurological exam: Present alert, CN II-XII intact and oriented X3; Absent motor sensory deficit Psychiatric Psychiatric exam: Present normal affect and normal mood; Absent anxious or depressed Skin Skin exam: Present dry and intact Discharge Data Data Completed and Pending Labs on day of discharge: Labs from last 24 hours 02/13/22 02/13/22 05:35 05:35 WBC 3.9 L RBC 3.97 Hgb 12.5 Hct 39.0 MCV 98.2 MCH 31.5 MCHC 32.1 RDW 14.4 Plt Count 82 L MPV 10.9 H Immature Gran % (Auto) 0.3 Neut % (Auto) 72.5 Lymph % (Auto) 21.0 [place] % (Auto) 6.2 Eos % (Auto) 0 Baso % (Auto) 0 Lymph # (Auto) 0.81 L [place] # (Auto) 0.24 Eos # (Auto) 0 Baso # (Auto) 0 Immature Gran # 0.01 Absolute Neutrophils 2.81 Sodium 142 Potassium 3.9 Chloride 109 H Carbon Dioxide 26 Anion Gap 7.0 L BUN 13 Creatinine 0.6 GFR Calculation 86 Glucose 79 Calcium 7.9 L Magnesium 2.0 Total Bilirubin < 0.2 AST 55 H ALT 14 Alkaline Phosphatase 44 Total Protein 4.5 L Albumin 2.8 L Globulin 1.7 L Albumin/Globulin Ratio 1.6 Discharge Plan Patient/Caregiver Discharge Instructions Prescriptions: Continued docusate sodium [Colace] 100 mg capsule 100 mg PO BID Qty: 60 5RF sumatriptan succinate 6 mg/0.5 mL cartridge See Rx Instructions .ROUTE .COMPLEX Qty: 6 0RF Dose Instruction: inject 0.5 milliliter (6 MILLIGRAMS) subcutaneously EVERY 1-4 HOURS if needed for migraines Rx Instructions: inject 0.5 milliliter (6 MILLIGRAMS) subcutaneously EVERY 1-4 HOURS if needed for migraines amitriptyline 10 mg tablet 20 mg PO QHS Qty: 60 2RF calcitonin (salmon) 200 unit/actuation spray,non-aerosol See Rx Instructions .ROUTE .COMPLEX Qty: 11.1 2RF Dose Instruction: instill 1 spray into alternating nostrils once daily Rx Instructions: instill 1 spray into alternating nostrils once daily losartan 25 mg tablet 25 mg PO QDAY Qty: 30 2RF Hold Instructions: Doctor's Order raloxifene 60 mg tablet See Rx Instructions .ROUTE .COMPLEX Qty: 90 1RF Dose Instruction: take 1 tablet by mouth once daily Rx Instructions: take 1 tablet by mouth once daily tizanidine 2 mg tablet 2 mg PO BID PRN (Reason: muscle spasticity) Qty: 60 1RF escitalopram oxalate 5 mg tablet 5 mg PO QDAY Qty: 30 3RF chlorhexidine gluconate 0.12 % mouthwash See Rx Instructions .ROUTE .COMPLEX Qty: 473 2RF Dose Instruction: swish 15 milliliters by mouth for 30 SECONDS then SPIT use twice a day after meals Rx Instructions: swish 15 milliliters by mouth for 30 SECONDS then SPIT use twice a day after meals methocarbamol 750 mg tablet 750 mg PO QHS Qty: 30 2RF pregabalin 75 mg capsule 75 mg PO QID Qty: 120 0RF alprazolam 0.5 mg tablet 0.5 mg PO QHS Qty: 30 1RF ascorbate calcium (vitamin C) 500 mg tablet 1,000 mg PO QDAY 0RF mirabegron [Myrbetriq] 25 mg tablet extended release 24 hr 0RF oxycodone-acetaminophen 10-325 mg tablet 1 tab PO Q4 0RF levothyroxine 25 mcg tablet 25 mcg PO ACB 0RF Follow Up Plan Follow up with: Jay Burt ARNP [Primary Care Provider] - Patient Disposition: Home, Self-Care Plan of Treatment: Acute hypoxemic respiratory failure COVID-19 infection Probable COPD exacerbation Patient reported history of chronic smoking Diagnosed with COVID in the ED Patient is unvaccinated Needing 2 to 3 L of nasal cannula oxygen plan Plan Continued on on dexamethasone and remdesivir We will monitor her oxygenation DuoNebs every 6 hours as needed Consider antibiotic if she is not improving Chronic pain Resume her home medications Hypothyroidism Resume levothyroxine Essential hypertension Resume her home medications Chronic pain DVT prophylaxis Heparin subcu Lovenox CODE STATUS-full code Prognosis: Serious Rehab Potential: Good I certify that the patient requires SNF services: No Overall status at discharge: patient is back to baseline Discharge Orders: Discharge Order (Routine); Ordered 02/13/22 Ordered By: Freddy LANGSTON VTE Deep Vein Thrombosis/Pulmonary Embolism Present on Admission: No
== END 2022-02-13 12:45 | disposition home or self-care (01) | DRG 177 ==
LOC: ED 15:12 → MEDSUR 20:43
PROVIDERS: ADMIT Internal Medicine; ATTEND Internal Medicine